=== PATIENT | female | born 1970 | race Caucasian/White ===

== ENCOUNTER 2020-05-08 21:02 | Emergency (ER) | payer OTHER ==
[2020-05-08] MEDS ORDERED: FLU VACC QS2020-21(6MOS UP)/PF 60 MCG/0.5 ML SYRINGE IM ONE (21:30)
--- NOTE | 2020-05-08 21:51 | EDM.PDOC ---
ED HPI GENERAL MEDICAL PROBLEM - General Chief Complaint: Abdominal Pain Stated Complaint: [facility] Time Seen by Provider: 05/08/20 21:40 Source of Information: Reports: Patient History Limitations: Reports: No Limitations - History of Present Illness INITIAL COMMENTS - FREE TEXT/NARRATIVE: Ms. Fowler is a pleasant 50-year-old woman who now presents the ED by EMS with a complaint of constipation. She states that she has not had a bowel movement in the past 4 to 5 days. She then developed sharp right upper quadrant abdominal pain around 17:00 this evening. The pain persisted for about 3 hours, then resolved, without recurrence. She also reports having had nausea earlier today, although that has also resolved. She states that she took an Ex-Lax around 18:00 tonight, without producing a bowel movement, wherefore she called EMS. Patient acknowledges that she has chronic constipation, but states that she does not take any preventative medicines or treatments for it. The patient states that she has never undergone a colonoscopy. Here in the ED, the patient's initial BP is found to be mildly elevated at 165/85, otherwise, she is hemodynamically stable, afebrile, saturating 100% on room air. Other than chronic constipation, the patient denies having a recent fever, chills, sore throat, ear pain, nasal or sinus congestion, cough, dyspnea, chest pain, palpitations, nausea, vomiting, diarrhea, abdominal pain, urinary symptoms, recent weight gain or weight loss, recent bloody bowel movements or black bowel movements, recent joint aches, headaches, or rashes. The patient does not have a PCP. She has not received an influenza vaccine this season, but agreed to receive one here tonight. Right Upper Abdominal Pain Score (Numeric/FACES): 1 - Related Data Allergies Allergy/AdvReac Type Severity Reaction Status Date / Time No Known Allergies Allergy Verified 05/08/20 21:07 Home Meds: Home Meds . [No Known Home Meds] 05/08/20 [History] Past Medical History - Past Surgical History HEENT Surgical History: Reports: Oral Surgery (dental extractions) Female Surgical History: Reports: Tubal Ligation Musculoskeletal Surgical History: Reports: Other (See Below) (Left bunionectomy) Social & Family History - Tobacco Use Tobacco Use Status *Q: Current Every Day Tobacco User Years of Tobacco use: 36 Packs/Tins Daily: 1 - Caffeine Use Caffeine Use: Reports: Coffee, Soda - Alcohol Use Alcohol Use History: No - Recreational Drug Use Recreational Drug Use: No - Living Situation & Occupation Living situation: Reports: , with Significant Other (Boyfriend) Occupation: Unemployed ED ROS GENERAL - Review of Systems Review Of Systems: Comprehensive ROS is negative, except as noted in HPI. ED EXAM, GI/ABD - Physical Exam Exam: See Below Exam Limited By: No Limitations General Appearance: Alert, WD/WN, No Apparent Distress Eyes: Bilateral: Normal Appearance, EOMI Ears: Normal External Exam, Hearing Grossly Normal Nose: Normal Inspection Throat/Mouth: Normal Inspection, Normal Lips, Normal Voice, No Airway Compromise Head: Atraumatic, Normocephalic Neck: Normal Inspection, Full Range of Motion Respiratory/Chest: No Respiratory Distress, Lungs Clear, Normal Breath Sounds, No Accessory Muscle Use Cardiovascular: Normal Peripheral Pulses, Regular Rate, Rhythm, No Edema, No Gallop, No JVD, No Murmur, No Rub GI/Abdominal Exam: Normal Bowel Sounds, Soft, No Organomegaly, No Distention, No Abnormal Bruit, No Mass, Tender (Mild, right upper quadrant only. Nontender elsewhere.) Back Exam: Normal Inspection, Full Range of Motion. No: CVA Tenderness (L), CVA Tenderness (R) Extremities: Normal Inspection, Normal Range of Motion, No Pedal Edema, Normal Capillary Refill Neurological: Alert, Oriented, Normal Cognition, No Motor/Sensory Deficits Psychiatric: Normal Affect Skin Exam: Warm, Dry, Intact, Normal Color, No Rash Course - Vital Signs Last Recorded V/S: Last Vital Signs Temp 36.4 C 05/08/20 21:03 Pulse 99 05/08/20 21:03 Resp 18 05/08/20 21:03 BP 165/85 H 05/08/20 21:03 Pulse Ox 100 05/08/20 21:03 - Orders/Labs/Meds Orders: Active Orders 24 hr Category Date Time Status Abdomen 1V Flat [CR] Stat Exams 05/08/20 21:49 Taken Meds: Medications Discontinued Medications Generic Name Dose Route Start Last Admin Trade Name Freq PRN Reason Stop Dose Admin Influenza Virus Vaccine 1 each 05/08/20 21:10 Pharmacy To Dose - Influenza Vaccine IM 05/08/20 21:11 ONETIME ONE Influenza Virus Vaccine 60 mcg 05/08/20 21:30 05/08/20 22:38 Fluzone Quad 2021-0911 Syringe IM 05/08/20 21:31 60 mcg .ONCE ONE Administration - Re-Assessments/Exams Free Text/Narrative Re-Assessment/Exam: 05/08/20 21:49 As above, the patient has not had a bowel movement for the past 4 to 5 days, then developed some sharp right upper quadrant abdominal pain this evening, which resolved on its own after about 3 hours. On examination, she has mild tenderness to her right upper quadrant, with no tenderness elsewhere. I have ordered a flat plate abdominal x-ray to evaluate for constipation. If it does indeed confirm a great deal of constipation, I will have the patient take [id number] enemas to give herself relief, however, if there is not a lot of constipation, we may need to look into the possibility of biliary colic. 05/08/20 22:21 Single-view flat radiograph of the abdomen appears to demonstrate a considerable amount of stool in the cecum/right hemicolon and transverse colon, although none is seen in the descending colon or rectum. Several pelvic ellis and phleboliths are incidentally noted. Formal read per the Radiologist pending. 05/08/20 22:27 X-ray results discussed with the patient. I recommended that she purchase some [id number] enemas, and I discussed the options available. She may also want to try some magnesium citrate to help move things along. Once she has relieved her current episode of constipation, I recommended that she increase the fiber in her diet with something like Metamucil or Citrucel. Since she has never undergone a colonoscopy, and was due when she turned 49, I will refer her to the clinic to establish a PCP. The patient will be given an influenza vaccine prior to discharge. Departure - Departure Time of Disposition: 22:29 Disposition: Home, Self-Care 01 Condition: Good Clinical Impression: Constipation - Discharge Information *PRESCRIPTION DRUG MONITORING PROGRAM REVIEWED*: Not Applicable *COPY OF PRESCRIPTION DRUG MONITORING REPORT IN PATIENT PRIYA: Not Applicable Instructions: Constipation, Adult Referrals: Sofy Dooley NP [Nurse Practitioner] - Forms: ED Department Discharge Additional Instructions: You were seen in the emergency room after not having a bowel movement for the past 4 to 5 days, then developing upper right abdominal pain tonight. Work-up in the ER included x-rays of your abdomen which confirmed a large amount of constipation in your right and transverse colon. As discussed, we recommend that you treat your current constipation with enemas. Saline, Phospho-Soda, and mineral oil enemas are available [id number]. Use as directed. If you cannot find mineral oil enemas, you can purchase a saline or Phospho-Soda enema, then fill the bottle with [id number] mineral oil. You may also consider drinking half a bottle of magnesium citrate, which will encourage your intestines to move. You may repeat the second half 6 hours later if you have not had a sufficient bowel movement. Be aware that magnesium citrate will likely cause abdominal cramping. Once you have cleaned out your colon, we recommend that you increase the fiber in your diet with Metamucil or Citrucel. As discussed, you were due for a colonoscopy when you turn 49 years old. We recommend that you follow-up with Sofy Dooley NP, or one of the other providers in the clinic, to establish a PCP. They can arrange for a colonoscopy, as well as address other health issues. If any other problems, please do not hesitate to return to the ER. You were given an influenza vaccine during your ER visit. Sepsis Event Note (ED) - Evaluation Sepsis Screening Result: No Definite Risk - Focused Exam Vital Signs: Vital Signs Temp Pulse Resp BP Pulse Ox 05/08/20 21:03 36.4 C 99 18 165/85 H 100 - My Orders Last 24 Hours: My Active Orders 05/08/20 21:49 Abdomen 1V Flat [CR] Stat - Assessment/Plan Last 24 Hours: My Active Orders 05/08/20 21:49 Abdomen 1V Flat [CR] Stat
--- NOTE | 2020-05-09 08:50 | CR ---
Abdomen: Supine view of the abdomen was obtained. Comparison: No prior study. Findings: Bowel gas pattern: Gas and stool noted within the colon which is within normal limits. Other findings: Surgical clips are seen within the pelvis. Calcifications are seen within the pelvis compatible with phleboliths. Osseous: Bony structures appear within normal limits for the patient's age. Impression: 1. Nothing acute is seen on supine abdominal x-ray. Diagnostic code #2
== END 2020-05-08 22:43 | disposition home or self-care (01) ==
LOC: JD.ED 21:02
DX: K59.00 Constipation, unspecified (principal); Z23 Encounter for immunization; F17.210 Nicotine dependence, cigarettes, uncomplicated
CPT/HCPCS: 74018; 74018-26; 90686; 99282; 99284; G0008